=== PATIENT | female | born 1995 | race Caucasian/White ===

== ENCOUNTER 2018-06-28 19:12 | Observation (INO) | payer BC | END 2018-06-28 20:45 | disposition home or self-care (01) | LOC: MW.ED 19:12 → MW.OB 19:47 | PROVIDERS: ADMIT Obstetrics & Gynecology; ATTEND Obstetrics & Gynecology | DX: O99.89 Other specified diseases and conditions complicating pregnancy, childbirth and the puerperium (principal); R10.30 Lower abdominal pain, unspecified; Z3A.20 20 weeks gestation of pregnancy; Z79.899 Other long term (current) drug therapy | CPT/HCPCS: 59025 ==

== ENCOUNTER 2018-11-23 05:35 | Inpatient (IN) | payer BC ==
[2018-11-23] MEDS ORDERED: Sodium Chloride 0.9% 10 ML SDV IV PRN (13:48)
[2018-11-23] MEDS ORDERED: Sodium Chloride 0.9% 2.5 ML Syringe FLUSH PRN (13:48)
[2018-11-23] MEDS ORDERED: Water For Irrigation,Sterile 1,000 ML Container IRR PRN (13:48)
[2018-11-23] MEDS ORDERED: Sodium Chloride 0.9% 10 ML Syringe FLUSH PRN (13:48)
[2018-11-23] MEDS ORDERED: Methylergonovine 0.2 MG/1 ML Amp IM PRN (13:48)
[2018-11-23] MEDS ORDERED: Ondansetron 4 MG/2 ML SDV IVPUSH PRN (13:48)
[2018-11-23] MEDS ORDERED: Lidocaine 1% 50 ML MDV INJECT PRN (13:48)
[2018-11-23] MEDS ORDERED: Tranexamic Acid 1,000 MG in Sodium Chloride 0.9% 100 ML IV PRN (13:48)
[2018-11-23] MEDS ORDERED: Carboprost Tromethamine 250 MCG/1 ML Amp IM PRN (13:48)
[2018-11-23] MEDS ORDERED: Misoprostol 200 MCG Tab PO PRN (13:48)
[2018-11-23] MEDS ORDERED: Terbutaline 1 MG/ML SDV SUBCUT PRN (13:51)
[2018-11-23] MEDS ORDERED: Lactated Ringers 1,000 ML IV SCH (14:00)
[2018-11-23] MEDS ORDERED: Oxytocin/0.9 % Sodium Chloride 30 UNIT/500 ML BAG IV SCH ×2 (14:00)
[2018-11-23] MEDS: Misoprostol 25 MCG (1/4 of 100 MCG) Tab PO PRN ×2 (15:16→19:52)
[2018-11-23] MEDS: Misoprostol 25 MCG (1/4 of 100 MCG) Tab VAG PRN ×2 (15:17→19:51)
--- NOTE | 2018-11-23 18:39 | PCM.LDHP ---
L&D History of Present Illness - General Date of Service: 11/23/18 Admit Problem/Dx: Patient Status Order with Admit Dx/Problem 11/23/18 13:48 Patient Status [ADT] Routine Admission Diagnosis/Problem Admission Diagnosis/Problem 11/23/18 18:33 23yo EDC 11/14/2018 41 2/7wks B+, Rubella non-immune, GBS neg. IOL for post dates. Source of Information: Patient History Limitations: Reports: No Limitations - History of Present Illness Improves with: Reports: None Worsens with: Reports: None Associated Symptoms: Reports: N - Related Data Allergies/Adverse Reactions: Allergies Allergy/AdvReac Type Severity Reaction Status Date / Time No Known Allergies Allergy Verified 11/23/18 13:33 Home Medications: Home Meds Pnv No.122/Iron/Folic Acid [ Multi Tablet] 1 each PO DAILY 06/28/18 [ History] Past Medical History HEENT History: Reports: Impaired Vision FIRST CRUSHER History: Reports: - Past Surgical History HEENT Surgical History: Reports: Tonsillectomy Social & Family History - Family History Cardiac: Reports: Other (See Below) Other Cardiac Family History: heart disease OBGYN: Reports: - Tobacco Use Smoking Status *Q: Never Smoker - Caffeine Use Caffeine Use: Reports: Coffee, Soda - Recreational Drug Use Recreational Drug Use: No H&P Review of Systems - Review of Systems: Review Of Systems: See Below General: Reports: No Symptoms HEENT: Reports: No Symptoms Pulmonary: Reports: No Symptoms Cardiovascular: Reports: No Symptoms Gastrointestinal: Reports: No Symptoms Genitourinary: Reports: No Symptoms Musculoskeletal: Reports: No Symptoms Skin: Reports: No Symptoms Psychiatric: Reports: No Symptoms Neurological: Reports: No Symptoms Hematologic/Lymphatic: Reports: No Symptoms Immunologic: Reports: No Symptoms L&D Exam - Exam Exam: See Below - Vital Signs Weight: 107.048 kg - OB Specific Contraction Intensity: Mild Movement: Active Heart Tones: Present Heart Tones per Min: 140 Heart Rate (FHR) Variability: Moderate (6-25 bmp) Presentation: Vertex - Luevano Score Luevano Score Cervix Position: Posterior Luevano Score Consistency: Medium Luevano Score Effacement: 51-70% Luevano Score Dilation: 3-4 cm Luevano Score 's Station: -3 Luevano Score Total: 5 - Exam General: Alert, Oriented, Cooperative HEENT: Hearing Intact Lungs: Normal Respiratory Effort GI/Abdominal Exam: Soft, Non-Tender, No Distention, Pelvis Stable Rectal Exam: Deferred Genitourinary: Normal external exam, Cervical dilitation Back Exam: Normal Inspection, Full Range of Motion Extremities: Normal Inspection, Normal Range of Motion, Non-Tender, No Pedal Edema Skin: Warm, Dry, Intact Neurological: Cranial Nerves Intact, Strength Equal Bilateral, Normal Gait, Normal Speech, Normal Tone, Sensation Intact Psychiatric: Alert, Normal Affect, Normal Mood - Patient Data Lab Results Last 24 hrs: Laboratory Results - last 24 hr 11/23/18 11/23/18 Range/Units 14:01 14:01 WBC 11.14 H (4.0-11.0) K/uL RBC 4.69 (4.30-5.90) M/uL Hgb 13.8 (12.0-16.0) g/dL Hct 40.9 (36.0-46.0) % MCV 87.2 (80.0-98.0) fL MCH 29.4 (27.0-32.0) pg MCHC 33.7 (31.0-37.0) g/dL RDW Std Deviation 46.3 (28.0-62.0) fl RDW Coeff of Alin 15 (11.0-15.0) % Plt Count 190 (150-400) K/uL MPV 11.60 (7.40-12.00) fL Nucleated RBC % 0.0 /100WBC Nucleated RBCs # 0 K/uL Blood Type B POSITIVE Antibody Screen NEGATIVE Result Diagrams: 11/23/18 14:01 - Problem List (1) Supervision of normal IUP (intrauterine ) in primigravida SNOMED Code(s): 39286623, 015869920, 957932781, 002678781 ICD Code: Z34.00 - ENCNTR FOR SUPRVSN OF NORMAL FIRST , UNSP TRIMESTER Status: Acute Priority: High Current Visit: Yes Qualifiers: Trimester: third trimester Qualified Code(s): Z34.03 - Encounter for supervision of normal first , third trimester (2) Post-dates SNOMED Code(s): 54317896 ICD Code: O48.0 - POST-TERM Status: Acute Priority: High Current Visit: Yes Qualifiers: Post-term type: 40-42 weeks gestation Qualified Code(s): O48.0 - Post-term Problem List Initiated/Reviewed/Updated: Yes Orders Last 24hrs: Active Orders 24 hr Category Date Time Status Patient Status [ADT] Routine ADT 11/23/18 13:48 Active Bedrest Bathroom Privileges [RC] ASDIRECTED Care 11/23/18 13:51 Active Communication Order [RC] ASDIRECTED Care 11/23/18 13:51 Active Communication Order [RC] ASDIRECTED Care 11/23/18 13:51 Active Communication Order [RC] ASDIRECTED Care 11/23/18 13:51 Active Heart Tones [RC] CONTINUOUS Care 11/23/18 13:48 Active Non Stress Test [RC] PER UNIT ROUTINE Care 11/23/18 13:48 Active May Shower [RC] ASDIRECTED Care 11/23/18 13:48 Active Notify Provider [RC] PRN Care 11/23/18 13:48 Active Notify Provider [RC] PRN Care 11/23/18 13:51 Active Notify Provider [RC] PRN Care 11/23/18 13:51 Active Notify Provider [RC] STAT Care 11/23/18 13:51 Active Oxygen Therapy [RC] ASDIRECTED Care 11/23/18 13:51 Active Up ad Haven [RC] ASDIRECTED Care 11/23/18 13:48 Active Vaginal Exam [RC] PRN Care 11/23/18 13:48 Active Vaginal Exam [RC] PRN Care 11/23/18 13:51 Active Vital Signs [RC] PER UNIT ROUTINE Care 11/23/18 13:48 Active Vital Signs [RC] PER UNIT ROUTINE Care 11/23/18 13:51 Active Regular Diet [DIET] Diet 11/23/18 Lunch Active Carboprost Tromethamine [Hemabate DS] Med 11/23/18 13:48 Active 250 mcg IM ASDIRECTED PRN Lactated Ringers [Ringers, Lactated] 1,000 ml Med 11/23/18 14:00 Active IV ASDIRECTED Lidocaine 1% [Xylocaine 1%] Med 11/23/18 13:48 Active 50 ml INJECT ONETIME PRN Methylergonovine [Methergine] Med 11/23/18 13:48 Active 0.2 mg IM ASDIRECTED PRN Nalbuphine [Nubain] Med 11/23/18 13:48 Active 10 mg IVPUSH Q1H PRN Ondansetron [Zofran] Med 11/23/18 13:48 Active 4 mg IVPUSH Q6H PRN Oxytocin/0.9 % Sodium Chloride [Oxytocin 30 Unit/500 ML Med 11/23/18 14:00 Active -NS] 30 unit in 500 ml IV TITRATE Oxytocin/0.9 % Sodium Chloride [Oxytocin 30 Unit/500 ML Med 11/23/18 14:00 Active -NS] 30 unit in 500 ml IV TITRATE Sodium Chloride 0.9% [Normal Saline] Med 11/23/18 13:48 Active 10 ml IV ASDIRECTED PRN Sodium Chloride 0.9% [Saline Flush] Med 11/23/18 13:48 Active 10 ml FLUSH ASDIRECTED PRN Sodium Chloride 0.9% [Saline Flush] Med 11/23/18 13:48 Active 2.5 ml FLUSH ASDIRECTED PRN Terbutaline [Brethine] Med 11/23/18 13:51 Active 0.25 mg SUBCUT ASDIRECTED PRN Tranexamic Acid [Cyklokapron] 1,000 mg Med 11/23/18 13:48 Active Sodium Chloride 0.9% [Normal Saline] 100 ml IV ONETIME Water For Irrigation,Sterile [Sterile Water for Med 11/23/18 13:48 Active Irrigation] 1,000 ml IRR ASDIRECTED PRN miSOPROStol [Cytotec] Med 11/23/18 13:48 Active 200 mcg PO ONETIME PRN miSOPROStol [Cytotec] Med 11/23/18 13:51 Active 25 mcg PO Q4H PRN miSOPROStol [Cytotec] Med 11/23/18 13:51 Active 25 mcg VAG Q4H PRN Scalp Electrode [WOMSER] Per Unit Routine Oth 11/23/18 13:48 Ordered Medication Administration Instruction [OM.PC] Q3H Oth 11/23/18 14:00 Ordered Peripheral IV Insertion Adult [OM.PC] Routine Oth 11/23/18 13:48 Ordered Resuscitation Status Routine Resus Stat 11/23/18 13:48 Ordered Medication Orders Carboprost Tromethamine (Hemabate Ds) 250 mcg IM ASDIRECTED PRN PRN Reason: Post Hemorrhage Lactated Ringer's (Ringers, Lactated) 1,000 mls @ 150 mls/hr IV ASDIRECTED RHINA Oxytocin/Sodium Chloride (Oxytocin 30 Unit/500 Ml-Ns) 30 unit in 500 mls @ 999 mls/hr IV TITRATE RHINA Tranexamic Acid 1,000 mg/ (Sodium Chloride) 110 mls @ 660 mls/hr IV ONETIME PRN PRN Reason: Bleeding Oxytocin/Sodium Chloride (Oxytocin 30 Unit/500 Ml-Ns) 30 unit in 500 mls @ 2 mls/hr IV TITRATE RHINA; Protocol Lidocaine HCl (Xylocaine 1%) 50 ml INJECT ONETIME PRN PRN Reason: Laceration repair Methylergonovine Maleate (Methergine) 0.2 mg IM ASDIRECTED PRN PRN Reason: Post Hemorrhage Misoprostol (Cytotec) 200 mcg PO ONETIME PRN PRN Reason: Post Hemorrhage Misoprostol (Cytotec) 25 mcg VAG Q4H PRN PRN Reason: Cervical Ripening Last Admin: 11/23/18 15:17 Dose: 25 mcg Misoprostol (Cytotec) 25 mcg PO Q4H PRN PRN Reason: Cervical Ripening Last Admin: 11/23/18 15:16 Dose: 25 mcg Nalbuphine HCl (Nubain) 10 mg IVPUSH Q1H PRN PRN Reason: Pain (severe 7-10) Ondansetron HCl (Zofran) 4 mg IVPUSH Q6H PRN PRN Reason: Nausea/Vomiting Sodium Chloride (Saline Flush) 10 ml FLUSH ASDIRECTED PRN PRN Reason: Keep Vein Open Sodium Chloride (Saline Flush) 2.5 ml FLUSH ASDIRECTED PRN PRN Reason: Keep Vein Open Sodium Chloride (Normal Saline) 10 ml IV ASDIRECTED PRN PRN Reason: IV Use Sterile Water (Sterile Water For Irrigation) 1,000 ml IRR ASDIRECTED PRN PRN Reason: delivery Terbutaline Sulfate (Brethine) 0.25 mg SUBCUT ASDIRECTED PRN PRN Reason: Tacysystole Assessment/Plan Comment:: IOL Post dates A: 23yo EDC 11/14/2018 41 2/7wks B+, Rubella non-immune, GBS neg. IOL for post dates. P: Admit, cytotec to pitocin, epidural prn, anticipate , Dr Holbrook updated.
[2018-11-23] MEDS: Nalbuphine 10 MG/1 ML Vial IVPUSH PRN (23:45)
[2018-11-24] MEDS: Nalbuphine 10 MG/1 ML Vial IVPUSH PRN (02:54)
--- NOTE | 2018-11-24 06:33 | PCM.DEL ---
L & D Note - General Info Date of Service: 11/24/18 Mother's Due Date: 11/14/18 - Delivery Note Labor: Spontaneous Cervical Ripening Method: Misoprostil Delivery Outcome: Livebirth Delivery Method: Spontaneous Vaginal Delivery-Single Infant Delivery Mode: Spontaneous Presentation: Vertex Nuchal Cord: Present (wrapped around the back of the neck and crossed the chest) Anesthesia Type: None Anesthetic: Lidocaine (Xylocaine) 1% Plain Local Anesthetic Volume: 5cc Amniotic Fluid Description: Clear Episiotomy Type: None Laceration: 2nd Degree Suture type: Vicryl Suture size: 3-0 Placenta: Intact, Spontaneous Cord: 3 Vessels Estimated Blood Loss: 200 Resuscitation Needed: No Second Stage Interventions: Reports: Pushing, Knee Chest Position Delivery Comments (Free Text/Narrative):: of viable male, FHT Cat II, patient on hands and knees for pushing. Head delivered with good pushing, Nuchal cord wrapped like a scarf. Shoulders and body delivered easily. Infant with spont cry given to mom. Cord clamped and cut and infant to peds staff with MD for evaluation. Pt assisted onto back and placenta delivered grossly intact. Inspection noted 2nd deg lac. Repaired with 3 -0 césar under Lidocaine 1%. Bimanual normal. EBL 200cc. APGARS 8/9 Wt 7lb 5oz. Mother and baby left in stable condition for recovery. Induction Criteria - Luevano Score Luevano Score Dilation: 1-2 cm Luevano Score Effacement: 60-70% Luevano Score Infant's Station: -2 Luevano Score Consistency: Medium Luevano Score Cervix Position: Posterior Luevano Score Total: 5 Luevano Score Presenting Part: Reports: Cephalic - Induction Gestational Age >/= 39 wks: Yes Medical Indication: Post dates 41 2/7wks Reassuring Monitoring Strip: Yes Absence of Tachy Systole: Yes - General Info Date of Service: 11/24/18 Admission Dx/Problem (Free Text): Patient Status Order with Admit Dx/Problem 11/23/18 13:48 Patient Status [ADT] Routine Admission Diagnosis/Problem Admission Diagnosis/Problem 11/23/18 18:33 23yo EDC 11/14/2018 41 2/7wks B+, Rubella non-immune, GBS neg. IOL for post dates. Functional Status: Reports: Pain Controlled, Tolerating Diet, Ambulating - Review of Systems General: Reports: No Symptoms HEENT: Reports: No Symptoms Pulmonary: Reports: No Symptoms Cardiovascular: Reports: No Symptoms Gastrointestinal: Reports: No Symptoms Genitourinary: Reports: No Symptoms Musculoskeletal: Reports: No Symptoms Skin: Reports: No Symptoms Neurological: Reports: No Symptoms Psychiatric: Reports: No Symptoms - Patient Data Weight - Most Recent: 107.048 kg Lab Results Last 24 Hours: Laboratory Results - last 24 hr 11/23/18 11/23/18 Range/Units 14:01 14:01 WBC 11.14 H (4.0-11.0) K/uL RBC 4.69 (4.30-5.90) M/uL Hgb 13.8 (12.0-16.0) g/dL Hct 40.9 (36.0-46.0) % MCV 87.2 (80.0-98.0) fL MCH 29.4 (27.0-32.0) pg MCHC 33.7 (31.0-37.0) g/dL RDW Std Deviation 46.3 (28.0-62.0) fl RDW Coeff of Alin 15 (11.0-15.0) % Plt Count 190 (150-400) K/uL MPV 11.60 (7.40-12.00) fL Nucleated RBC % 0.0 /100WBC Nucleated RBCs # 0 K/uL Blood Type B POSITIVE Antibody Screen NEGATIVE Med Orders - Current: Current Medications Carboprost Tromethamine (Hemabate Ds) 250 mcg IM ASDIRECTED PRN PRN Reason: Post Hemorrhage Lactated Ringer's (Ringers, Lactated) 1,000 mls @ 150 mls/hr IV ASDIRECTED RHINA Last Admin: 11/23/18 23:43 Dose: 150 mls/hr Oxytocin/Sodium Chloride (Oxytocin 30 Unit/500 Ml-Ns) 30 unit in 500 mls @ 999 mls/hr IV TITRATE RHINA Last Admin: 11/24/18 05:38 Dose: 500 mls/hr Tranexamic Acid 1,000 mg/ (Sodium Chloride) 110 mls @ 660 mls/hr IV ONETIME PRN PRN Reason: Bleeding Oxytocin/Sodium Chloride (Oxytocin 30 Unit/500 Ml-Ns) 30 unit in 500 mls @ 2 mls/hr IV TITRATE [facility]; Protocol Lidocaine HCl (Xylocaine 1%) 50 ml INJECT ONETIME PRN PRN Reason: Laceration repair Last Admin: 11/24/18 05:42 Dose: 8 ml Methylergonovine Maleate (Methergine) 0.2 mg IM ASDIRECTED PRN PRN Reason: Post Hemorrhage Misoprostol (Cytotec) 200 mcg PO ONETIME PRN PRN Reason: Post Hemorrhage Misoprostol (Cytotec) 25 mcg VAG Q4H PRN PRN Reason: Cervical Ripening Last Admin: 11/23/18 19:51 Dose: 25 mcg Misoprostol (Cytotec) 25 mcg PO Q4H PRN PRN Reason: Cervical Ripening Last Admin: 11/23/18 19:52 Dose: 25 mcg Nalbuphine HCl (Nubain) 10 mg IVPUSH Q1H PRN PRN Reason: Pain (severe 7-10) Last Admin: 11/24/18 02:54 Dose: 10 mg Ondansetron HCl (Zofran) 4 mg IVPUSH Q6H PRN PRN Reason: Nausea/Vomiting Sodium Chloride (Saline Flush) 10 ml FLUSH ASDIRECTED PRN PRN Reason: Keep Vein Open Sodium Chloride (Saline Flush) 2.5 ml FLUSH ASDIRECTED PRN PRN Reason: Keep Vein Open Sodium Chloride (Normal Saline) 10 ml IV ASDIRECTED PRN PRN Reason: IV Use Sterile Water (Sterile Water For Irrigation) 1,000 ml IRR ASDIRECTED PRN PRN Reason: delivery Terbutaline Sulfate (Brethine) 0.25 mg SUBCUT ASDIRECTED PRN PRN Reason: Tacysystole - Exam General: Alert, Oriented, Cooperative, No Acute Distress Lungs: Normal Respiratory Effort GI/Abdominal Exam: Soft, Non-Tender, Pelvis Stable (Female) Exam: Normal External Exam, Normal Bimanual Exam, Vaginal Bleeding, Vaginal Tears Back Exam: Normal Inspection, Full Range of Motion Extremities: Normal Inspection, Normal Range of Motion, Non-Tender, No Pedal Edema Skin: Warm, Dry, Intact Wound/Incisions: Healing Well Neurological: No New Focal Deficit, Normal Speech, Normal Tone, Strength Equal Bilateral, Sensation Intact Psy/Mental Status: Alert, Normal Affect, Normal Mood - Problem List & Annotations (1) Supervision of normal IUP (intrauterine ) in primigravida SNOMED Code(s): 85475263, 968567778, 927800359, 944048008 Code(s): Z34.00 - ENCNTR FOR SUPRVSN OF NORMAL FIRST , UNSP TRIMESTER Status: Acute Priority: High Current Visit: Yes Qualifiers: Trimester: third trimester Qualified Code(s): Z34.03 - Encounter for supervision of normal first , third trimester (2) Post-dates SNOMED Code(s): 63051765 Code(s): O48.0 - POST-TERM Status: Acute Priority: High Current Visit: Yes Qualifiers: Post-term type: 40-42 weeks gestation Qualified Code(s): O48.0 - Post-term (3) (normal spontaneous vaginal delivery) SNOMED Code(s): 87560116, 582122786 Code(s): O80 - ENCOUNTER FOR FULL-TERM UNCOMPLICATED DELIVERY Status: Acute Priority: High Current Visit: Yes - Problem List Review Problem List Initiated/Reviewed/Updated: Yes - My Orders Last 24 Hours: My Active Orders 11/23/18 13:48 Heart Tones [RC] CONTINUOUS Non Stress Test [RC] PER UNIT ROUTINE May Shower [RC] ASDIRECTED Notify Provider [RC] PRN Up ad Haven [RC] ASDIRECTED Vaginal Exam [RC] PRN Vital Signs [RC] PER UNIT ROUTINE Carboprost Tromethamine [Hemabate DS] 250 mcg IM ASDIRECTED PRN Lidocaine 1% [Xylocaine 1%] 50 ml INJECT ONETIME PRN Methylergonovine [Methergine] 0.2 mg IM ASDIRECTED PRN Nalbuphine [Nubain] 10 mg IVPUSH Q1H PRN Ondansetron [Zofran] 4 mg IVPUSH Q6H PRN Sodium Chloride 0.9% [Normal Saline] 10 ml IV ASDIRECTED PRN Sodium Chloride 0.9% [Saline Flush] 10 ml FLUSH ASDIRECTED PRN Sodium Chloride 0.9% [Saline Flush] 2.5 ml FLUSH ASDIRECTED PRN Tranexamic Acid [Cyklokapron] 1,000 mg Sodium Chloride 0.9% [Normal Saline] 100 ml IV ONETIME Water For Irrigation,Sterile [Sterile Water for Irrigation] 1,000 ml IRR ASDIRECTED PRN miSOPROStol [Cytotec] 200 mcg PO ONETIME PRN Scalp Electrode [WOMSER] Per Unit Routine Peripheral IV Insertion Adult [OM.PC] Routine Resuscitation Status Routine 11/23/18 13:51 Bedrest Bathroom Privileges [RC] ASDIRECTED Communication Order [RC] ASDIRECTED Communication Order [RC] ASDIRECTED Communication Order [RC] ASDIRECTED Notify Provider [RC] PRN Notify Provider [RC] PRN Notify Provider [RC] STAT Oxygen Therapy [RC] ASDIRECTED Vaginal Exam [RC] PRN Vital Signs [RC] PER UNIT ROUTINE Terbutaline [Brethine] 0.25 mg SUBCUT ASDIRECTED PRN miSOPROStol [Cytotec] 25 mcg PO Q4H PRN miSOPROStol [Cytotec] 25 mcg VAG Q4H PRN 11/23/18 14:00 Lactated Ringers [Ringers, Lactated] 1,000 ml IV ASDIRECTED Oxytocin/0.9 % Sodium Chloride [Oxytocin 30 Unit/500 ML-NS] 30 unit in 500 ml IV TITRATE Oxytocin/0.9 % Sodium Chloride [Oxytocin 30 Unit/500 ML-NS] 30 unit in 500 ml IV TITRATE Medication Administration Instruction [OM.PC] Q3H 11/23/18 Lunch Regular Diet [DIET] - Plan Plan:: IOL Post dates A: 23yo EDC 11/14/2018 41 2/7wks B+, Rubella non-immune, GBS neg. IOL for post dates. P: Admit, cytotec to pitocin, epidural prn, anticipate , Dr Holbrook updated. A: viable male, APGARS 8/9, Wt: 7lb 5oz. 2nd deg lac with repair, EBL 200cc. Mother and baby stable P: Routine pp plan of care
[2018-11-24] MEDS ORDERED: Witch Hazel Medicated Pads 40/Jar TOP PRN (06:39)
[2018-11-24] MEDS ORDERED: Acetaminophen 500 MG Tab PO PRN (06:39)
[2018-11-24] MEDS ORDERED: oxyCODONE 5 MG Tab PO PRN (06:39)
[2018-11-24] MEDS ORDERED: Benzocaine/Menthol 20%-0.5% Spray 78 GM Cannister TOP PRN (06:39)
[2018-11-24] MEDS ORDERED: Docusate Sodium 100 MG Cap PO PRN (06:39)
[2018-11-24] MEDS ORDERED: Bisacodyl 10 MG Supp RECTAL PRN (06:39)
[2018-11-24] MEDS ORDERED: Ibuprofen 400 MG Tab PO PRN (06:39)
[2018-11-24] MEDS ORDERED: Lanolin 100% Cream 7 GM Tube TOP PRN (06:39)
[2018-11-24] MEDS: Ibuprofen 800 MG Tab PO PRN ×2 (14:32→21:44)
[2018-11-24] MEDS: Acetaminophen 500 MG Tab PO PRN ×2 (14:33→21:46)
--- NOTE | 2018-11-25 07:27 | PCM.DCSUM1 ---
Discharge Summary - Hospital Course Free Text/Narrative:: Discharge home with infant. Follow up in 6 weeks for . Diagnosis: Stroke: No Modified Caleb Scale: No Symptoms at All Modified Caleb Scale Score: 0 - Discharge Data Discharge Date: 11/25/18 Discharge Disposition: Home, Self-Care 01 Condition: Good - Referral to Home Health Primary Care Physician: Carrol Salazar CNM - Discharge Diagnosis/Problem(s) (1) Supervision of normal IUP (intrauterine ) in primigravida SNOMED Code(s): 64534015, 098524280, 424719359, 670089444 ICD Code: Z34.00 - ENCNTR FOR SUPRVSN OF NORMAL FIRST , UNSP TRIMESTER Status: Acute Priority: High Current Visit: Yes Qualifiers: Trimester: third trimester Qualified Code(s): Z34.03 - Encounter for supervision of normal first , third trimester (2) Post-dates SNOMED Code(s): 37444565 ICD Code: O48.0 - POST-TERM Status: Acute Priority: High Current Visit: Yes Qualifiers: Post-term type: 40-42 weeks gestation Qualified Code(s): O48.0 - Post-term (3) (normal spontaneous vaginal delivery) SNOMED Code(s): 22052721, 709706512 ICD Code: O80 - ENCOUNTER FOR FULL-TERM UNCOMPLICATED DELIVERY Status: Acute Priority: High Current Visit: Yes - Patient Instructions Diet: Usual Diet as Tolerated Activity: As Tolerated, No Strenuous Activities, Rest and Relax Today Driving: May Drive Today Showering/Bathing: May Shower Notify Provider of: Fever, Increased Pain, Swelling and Redness, Nausea and/or Vomiting Other/Special Instructions: Discharge home with . Follow up in 6 weeks for . - Discharge Plan *PRESCRIPTION DRUG MONITORING PROGRAM REVIEWED*: Not Applicable *COPY OF PRESCRIPTION DRUG MONITORING REPORT IN PATIENT TONA: Not Applicable Prescriptions/Med Rec: Ibuprofen [Motrin] 800 mg PO Q6H PRN #90 tablet PRN Reason: Pain Home Medications: Home Meds Pnv No.122/Iron/Folic Acid [ Multi Tablet] 1 each PO DAILY 06/28/18 [ History] Ibuprofen [Motrin] 800 mg PO Q6H PRN #90 tablet 11/25/18 [Rx] Oxygen Therapy Mode: Room Air Referrals: [facility] [Outside] Carrol Salazar CNM [Primary Care Provider] - 01/05/19 9:30 am - Discharge Summary/Plan Comment DC Time >30 min.: Yes - General Info Date of Service: 11/25/18 Admission Dx/Problem (Free Text: Patient Status Order with Admit Dx/Problem 11/23/18 13:48 Patient Status [ADT] Routine Admission Diagnosis/Problem Admission Diagnosis/Problem 11/23/18 18:33 23yo EDC 11/14/2018 41 2/7wks B+, Rubella non-immune, GBS neg. IOL for post dates. Functional Status: Reports: Pain Controlled, Tolerating Diet, Ambulating, Urinating - Review of Systems General: Reports: No Symptoms HEENT: Reports: No Symptoms Pulmonary: Reports: No Symptoms Cardiovascular: Reports: No Symptoms Gastrointestinal: Reports: No Symptoms Genitourinary: Reports: No Symptoms Musculoskeletal: Reports: No Symptoms Skin: Reports: No Symptoms Neurological: Reports: No Symptoms Psychiatric: Reports: No Symptoms - Patient Data Vitals - Most Recent: Last Vital Signs Temp 36.8 C 11/25/18 04:20 Pulse 89 11/24/18 16:30 Resp 17 11/25/18 04:20 BP 108/72 11/25/18 04:20 Pulse Ox 93 L 11/25/18 04:20 Weight - Most Recent: 107.048 kg Med Orders - Current: Current Medications Acetaminophen (Tylenol Extra Strength) 500 mg PO Q4H PRN PRN Reason: Pain Acetaminophen (Tylenol Extra Strength) 1,000 mg PO Q4H PRN PRN Reason: Pain Last Admin: 11/24/18 21:46 Dose: 1,000 mg Benzocaine/Menthol (Dermoplast Pain Relief 20%-0.5% [place]) 78 gm TOP ASDIRECTED PRN PRN Reason: Perineal Comfort Measure Last Admin: 11/24/18 14:34 Dose: 1 canister Bisacodyl (Dulcolax) 10 mg RECTAL ONETIME PRN PRN Reason: Constipation Docusate Sodium (Colace) 100 mg PO BID PRN PRN Reason: Constipation Last Admin: 11/24/18 21:45 Dose: 100 mg Emollient Ointment (Lansinoh Hpa) 0 gm TOP ASDIRECTED PRN PRN Reason: Sore Nipples Ibuprofen (Motrin) 400 mg PO Q4H PRN PRN Reason: Pain Ibuprofen (Motrin) 800 mg PO Q6H PRN PRN Reason: Pain Last Admin: 11/24/18 21:44 Dose: 800 mg Oxycodone HCl (Oxycodone) 5 mg PO Q2H PRN PRN Reason: Pain Witch Teresa (Tucks) 1 pad TOP ASDIRECTED PRN PRN Reason: comfort care Last Admin: 11/24/18 14:34 Dose: 1 tub Discontinued Medications Carboprost Tromethamine (Hemabate Ds) 250 mcg IM ASDIRECTED PRN PRN Reason: Post Hemorrhage Lactated Ringer's (Ringers, Lactated) 1,000 mls @ 150 mls/hr IV ASDIRECTED RHINA Last Admin: 11/23/18 23:43 Dose: 150 mls/hr Oxytocin/Sodium Chloride (Oxytocin 30 Unit/500 Ml-Ns) 30 unit in 500 mls @ 999 mls/hr IV TITRATE RHINA Last Admin: 11/24/18 05:38 Dose: 500 mls/hr Tranexamic Acid 1,000 mg/ (Sodium Chloride) 110 mls @ 660 mls/hr IV ONETIME PRN PRN Reason: Bleeding Oxytocin/Sodium Chloride (Oxytocin 30 Unit/500 Ml-Ns) 30 unit in 500 mls @ 2 mls/hr IV TITRATE [facility]; Protocol Lidocaine HCl (Xylocaine 1%) 50 ml INJECT ONETIME PRN PRN Reason: Laceration repair Last Admin: 11/24/18 05:42 Dose: 8 ml Methylergonovine Maleate (Methergine) 0.2 mg IM ASDIRECTED PRN PRN Reason: Post Hemorrhage Misoprostol (Cytotec) 200 mcg PO ONETIME PRN PRN Reason: Post Hemorrhage Misoprostol (Cytotec) 25 mcg VAG Q4H PRN PRN Reason: Cervical Ripening Last Admin: 11/23/18 19:51 Dose: 25 mcg Misoprostol (Cytotec) 25 mcg PO Q4H PRN PRN Reason: Cervical Ripening Last Admin: 11/23/18 19:52 Dose: 25 mcg Nalbuphine HCl (Nubain) 10 mg IVPUSH Q1H PRN PRN Reason: Pain (severe 7-10) Last Admin: 11/24/18 02:54 Dose: 10 mg Ondansetron HCl (Zofran) 4 mg IVPUSH Q6H PRN PRN Reason: Nausea/Vomiting Sodium Chloride (Saline Flush) 10 ml FLUSH ASDIRECTED PRN PRN Reason: Keep Vein Open Sodium Chloride (Saline Flush) 2.5 ml FLUSH ASDIRECTED PRN PRN Reason: Keep Vein Open Sodium Chloride (Normal Saline) 10 ml IV ASDIRECTED PRN PRN Reason: IV Use Sterile Water (Sterile Water For Irrigation) 1,000 ml IRR ASDIRECTED PRN PRN Reason: delivery Terbutaline Sulfate (Brethine) 0.25 mg SUBCUT ASDIRECTED PRN PRN Reason: Tacysystole - Exam General: Reports: Alert, Oriented, Cooperative, No Acute Distress Lungs: Reports: Normal Respiratory Effort GI/Abdominal Exam: Soft, Non-Tender (Female) Exam: Deferred, Vaginal Bleeding Rectal (Female) Exam: Deferred Back Exam: Reports: Normal Inspection, Full Range of Motion Extremities: Normal Inspection, Normal Range of Motion, Non-Tender, No Pedal Edema Skin: Reports: Warm, Dry, Intact Wound/Incisions: Reports: Healing Well Neurological: Reports: No New Focal Deficit, Normal Speech, Normal Tone, Strength Equal Bilateral Psy/Mental Status: Reports: Alert, Normal Affect, Normal Mood
[2018-11-25] MEDS: Ibuprofen 800 MG Tab PO PRN (10:38)
[2018-11-25] MEDS: Acetaminophen 500 MG Tab PO PRN (10:39)
== END 2018-11-25 11:50 | disposition home or self-care (01) | DRG 560 ==
LOC: MW.OB 05:35 → OBSVTOIN 11-24 05:35 → MW.OB 11-24 11:00
PROVIDERS: ADMIT Obstetrics & Gynecology; ATTEND Obstetrics & Gynecology
PROC: 10E0XZZ Delivery of Products of Conception, External Approach (ICD-10-PCS; principal; 2018-11-24)
PROC: 3E033VJ Introduction of Other Hormone into Peripheral Vein, Percutaneous Approach (ICD-10-PCS; 2018-11-24)
PROC: 0KQM0ZZ Repair Perineum Muscle, Open Approach (ICD-10-PCS; 2018-11-24)
DX: O48.0 Post-term pregnancy (principal); O77.0 Labor and delivery complicated by meconium in amniotic fluid; Z37.0 Single live birth; Z3A.41 41 weeks gestation of pregnancy; O70.1 Second degree perineal laceration during delivery
CPT/HCPCS: 36415; 59025; 59409; 85027; 86850; 86900; 86901; A9270-GY; J2001; J2300; J2590; J7120